=== PATIENT | male | born 1970 | race Two or more races ===

== ENCOUNTER 2023-09-15 15:49 | Emergency (ER) | payer OTHER ==
[~2023-09-15] VITALS: Ht 167.6 cm; Wt 65.0 kg
[2023-09-15 18:18] LABS: Basophils # (auto) 0.1 10 ^3/uL (0-0.2); Eosinophils # (auto) 0 10 ^3/uL (0-0.8); Eosinophils % (auto) 0.5 % (0.0-7.0); Hematocrit 31.7 % (41.0-53.0); Hemoglobin 10.7 g/dL (13.5-17.5); Lymphocytes # (auto) 0.7 10 ^3/uL (0.4-5.4); Lymphocytes % (auto) 12.4 % (10.0-50.0); Mean Corpuscular Hemoglobin 31.5 pg (28.0-32.0); Mean Corpuscular Hgb Conc. 33.6 g/dL (32.0-36.0); Mean Corpuscular Volume 93.7 fL (80.0-100.0); Monocytes # (auto) 0.6 10 ^3/uL (0-1.3); Monocytes % (auto) 10.9 % (0.0-12.0); Neutrophils # (auto) 4.3 10 ^3/uL (1.6-8.6); Neutrophils % (auto) 75.2 % (37.0-80.0); Nucleated Red Blood Cells % 0.3 %; Red Blood Cells 3.39 10^6/uL (4.5-5.90); Red Cell Distribution Width 15.1 % (11.8-14.3); White Blood Cell 5.8 10^3/uL (4.4-10.8)
[2023-09-15 18:39] LABS: INR 1.6 (0.9-1.15); Partial Thromboplastin Time 34.5 SEC (24.5-34.5); Prothrombin Time 16.3 sec (9.3-11.8)
[2023-09-15 19:11] LABS: Alanine Aminotransferase 30 U/L (7-40); Albumin 3.7 g/dL (3.2-4.8); Alkaline Phosphatase 123 U/L (46-116); Anion Gap 10 (5-15); Aspartate Aminotransferase 24 U/L (13-40); BUN/Creatinine Ratio 5.6 (10.0-20.0); Bilirubin, Total 0.4 mg/dL (0.2-1.0); Blood Urea Nitrogen 38 mg/dL (9-23); Calcium 8.8 mg/dL (8.7-10.4); Carbon Dioxide 23 mmol/L (20-30); Chloride 99 mmol/L (98-107); Glucose 127 mg/dL (74-106); Magnesium 2.2 mg/dL (1.6-2.6); Potassium 5.3 mmol/L (3.5-5.1); Sodium 132 mmol/L (136-145)
[2023-09-15 19:12] LABS: Total Protein 7.2 g/dL (5.7-8.2)
[2023-09-16 01:22] VITALS: BP 144/71; PULSE 63; RESP 16; TEMP 99.4; O2SAT 100
[2023-09-16 02:50] LABS: Urine Bacteria FEW /hpf (None Seen); Urine Blood Negative /uL (Negative); Urine Clarity Clear (Clear); Urine Color Yellow (Yellow); Urine Protein, UAD 2+ (Negative); Urine Specific Gravity 1.021 (1.001-1.035); Urine Sperm PRESENT /hpf (None Seen); Urine Urobilinogen Normal (Negative); Urine WBC 2 /hpf (0 - 3)
== END 2023-09-16 01:30 | disposition home or self-care (01) ==
LOC: EDBD 15:49 → ER 15:49
DX: R53.1 Weakness (principal); N18.6 End stage renal disease; I50.9 Heart failure, unspecified; K21.9 Gastro-esophageal reflux disease without esophagitis; Z99.2 Dependence on renal dialysis
CPT/HCPCS: 36415; 71045; 80053; 81001; 83735; 83880; 84484; 85025; 85610; 85730